=== PATIENT | male | born 1985 | race Caucasian/White ===

== ENCOUNTER 2024-02-11 11:17 | Emergency (ER) | payer OTHER ==
--- NOTE | 2024-02-11 12:05 | RAD REPORT ---
EXAM DESCRIPTION: Rodrigo Single View02/11/2024 11:59 am CLINICAL HISTORY: Chest pain COMPARISON: none FINDINGS: The lungs appear clear of acute infiltrate. The heart is normal size IMPRESSION: No acute abnormalities displayed
[2024-02-11 12:08] LABS: Absolute Basophils 0.1 K/uL (0-0.5); Absolute Eosinophils 0.1 K/uL (0-0.5); Absolute Lymphocytes (CBC) 1.7 K/uL (0.7-4.9); Absolute Monocytes 0.7 K/uL (0.1-1.3); Absolute Neutrophil 8.8 K/uL (1.8-8.0); Basophils % 0.9 % (0-1.3); Eosinophils % 0.7 % (0-4.4); Hematocrit 46.9 % (39.6-49.0); Lymphocytes % 15.1 % (15.3-44.8); MCH 30.7 pg (27.0-35.0); MCHC 34.2 g/dL (32.0-36.0); MCV 89.8 fL (80-100); MPV 8.1 fL (7.6-11.3); Monocytes % 6.5 % (3.3-12.3); Neutrophils % 76.8 % (41.7-73.7); Platelets 323 thou/uL (152-406); RBC Red Blood Cell Count 5.22 M/uL (4.33-5.43); Red Cell Distribution Width 13.6 % (12.1-15.2)
[2024-02-11 12:12] LABS: PT Prothrombin Time 12.7 SECONDS (9.5-12.5); Protime INR 1.16
[2024-02-11 12:30] LABS: ALT/SGPT 37 U/L (16-61); AST/SGOT 16 U/L (15-37); Albumin 3.7 g/dL (3.4-5.0); Albumin/Globulin Ratio 0.9 (1.1-1.8); Alkaline Phosphatase 76 U/L (45-117); BUN Blood Urea Nitrogen 17 mg/dL (7-18); Bicarbonate 24 mEq/L (21-32); Bilirubin Direct 0.1 mg/dL (0-0.2); Bilirubin Indirect, Calculated 0.5 mg/dL (0.2-0.8); Bilirubin Total 0.6 mg/dL (0.2-1.0); Glomerular Filtration Rate 71 ml/min (=/>90); Glucose Level 101 mg/dL (74-106); Magnesium 2.2 mg/dL (1.6-2.4); NT PRO-BNP 24 pg/mL (<125); Protein, Total 7.7 g/dL (6.4-8.2); Sodium Level 133 mEq/L (136-145)
[2024-02-11 12:33] LABS: Troponin High Sensitivity < 3.0 pg/mL (<58.9)
--- NOTE | 2024-02-11 12:58 | EDPHYS ---
Physician Documentation [facility] Name: Jose Roberto Maldonado Age: 39 yrs Sex: Male : 1985 Arrival Date: 02/11/2024 Time: 11:17 Bed 15 Private MD: ED Physician Bam Chou HPI: 02/10 11:58 This 39 yrs old Male presents to ER via Ambulatory with complaints of High Blood sb4 Pressure, Numbness Of Hand, Shortness Of Breath. 11:58 Patient states that he was at work this morning when all of a sudden he started sb4 experiencing shortness of breath, dizziness, diaphoresis, and tingling in both of his arms. He tried to sit in his car and cool off and then went to his PCP. PCP did an EKG at the office which was okay and sent him to the ED for further evaluation. Patient states that his symptoms have since resolved he just feels a little weak. He denies any cardiac history. Does report a history of hypertension and hypercholesterolemia but is not on any medication daily. Historical: - Allergies: 11:36 No Known Allergies; as6 - PMHx: 11:36 Hypertensive disorder; as6 - PSHx: 11:36 None; as6 - Immunization history:: Adult Immunizations up to date. - Infectious Disease History:: Denies. - Social history:: Smoking status: Reported history of juuling and/or vaping. ROS: 11:58 Constitutional: Negative for fever, chills, and weight loss, sb4 11:58 Respiratory: Positive for shortness of breath, 11:58 Neuro: Positive for dizziness, 11:58 All other systems are negative, Exam: 11:58 Constitutional: This is a well developed, well nourished patient who is awake, alert, sb4 and in no acute distress. Head/Face: Normocephalic, atraumatic. Eyes: Extra-ocular motions intact. Periorbital areas with no swelling, redness, or edema. ENT: Mucous membranes moist. Cardiovascular: Regular rate and rhythm with a normal S1 and S2. Respiratory: Lungs have equal breath sounds bilaterally, clear to auscultation and percussion. No rales, rhonchi or wheezes noted. No increased work of breathing, no retractions or nasal flaring. Abdomen/GI: Soft, non-tender, no distension. Skin: Warm, dry with normal turgor. Normal color with no rashes, no lesions, and no evidence of cellulitis. MS/ Extremity: Pulses equal, no cyanosis. Neurovascular intact. Full, normal range of motion. Neuro: Awake and alert, GCS 15, oriented to person, place, time, and situation. Motor strength 5/5 in all extremities. Sensory grossly intact. Vital Signs: 11:33 BP 144 / 105; Pulse 81; Resp 18 S; Temp 97.7(O); Pulse Ox 99% on R/A; Weight 111.13 kg as6 (R); Height 5 ft. 10 in. (R); Pain 0/10; 12:03 BP 124 / 86; Pulse 73; Resp 16 S; Pulse Ox 98% on R/A; kc6 11:33 Body Mass Index 35.15 (111.13 kg, 177.8 cm) as6 11:33 Pain Scale: Adult as6 MDM: 11:32 Patient medically screened. sb4 12:56 Data interpreted: Pulse oximetry: on room air is 98 %. Interpretation: normal. Plan: O2 sb4 by NC applied. Data reviewed: vital signs, nurses notes, lab test result(s), EKG, radiologic studies, and as a result, I will discharge patient. Consideration of Admission/Observation Escalation of care including admission/observation considered. Care significantly affected by the following chronic conditions: Hypertension. Scoring Tools HEART Score: History: ECG: Age: Risk Factors: 1 or 2 risk factors (1), Troponin: Total Score = 2. 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 02/10 11:43 Order name: Basic Metabolic Panel; Complete Time: 12:45 sb4 02/10 11:43 Order name: CBC with Diff; Complete Time: 12:15 sb4 02/10 11:43 Order name: LFT's; Complete Time: 12:45 sb4 02/10 11:43 Order name: Magnesium; Complete Time: 12:45 sb4 02/10 11:43 Order name: NT PRO-BNP; Complete Time: 12:45 sb4 02/10 11:43 Order name: PT-INR; Complete Time: 12:15 sb4 02/10 11:43 Order name: Troponin HS; Complete Time: 12:45 sb4 02/10 11:43 Order name: XRAY Chest (1 view); Complete Time: 12:08 sb4 02/10 11:43 Order name: EKG; Complete Time: 11:43 sb4 02/10 11:43 Order name: Cardiac monitoring; Complete Time: 12:02 sb4 02/10 11:43 Order name: EKG - Nurse/Tech; Complete Time: 12:02 sb4 02/10 11:43 Order name: IV Saline Lock; Complete Time: 12:02 sb4 02/10 11:43 Order name: Labs collected and sent; Complete Time: 12:02 sb4 02/10 11:43 Order name: O2 Per Protocol; Complete Time: 11:45 sb4 02/10 11:43 Order name: O2 Sat Monitoring; Complete Time: 11:45 sb4 EC:02 Rate is 72 beats/min. Rhythm is regular, Normal Sinus Rhythm. TX interval is normal at sb4 136 msec. QRS interval is normal at 94 msec. QT interval is normal at 388 msec. No Q waves. T waves are Normal. No ST changes noted. Clinical impression: Normal ECG. Interpreted by me. Reviewed by me. Administered Medications: No medications were administered Disposition Summary: 02/11/24 12:58 Discharge Ordered Notes: Location: Home sb4 Problem: new sb4 Symptoms: have improved sb4 Condition: Stable sb4 Diagnosis - Essential (primary) hypertension sb4 Followup: sb4 - With: Emergency Department - When: As needed - Reason: Trouble breathing, Worsening of condition Discharge Instructions: - Discharge Summary Sheet sb4 - Nonspecific Chest Pain, Adult, [id number] sb4 - Hypertension, Adult, [id number] sb4 Forms: - Medication Reconciliation Form sb4 - Patient Portal Instructions sb4 - Leadership Thank You Letter sb4 Signatures: Dispatcher [employer] Jose Armando Macedo RN RN as6 Zakiya Villanueva PA-C PA-C sb4
--- NOTE | 2024-02-11 12:58 | ER ---
Nurse's Notes [facility] Name: Jose Roberto Maldonado Age: 39 yrs Sex: Male : 1985 Arrival Date: 02/11/2024 Time: 11:17 Bed 15 Private MD: Diagnosis: Essential (primary) hypertension Presentation: 02/10 11:33 Chief complaint: Patient states: had an episode of shortness of breath, numbness, and as6 being diaphoretic at work. pt now c/o general weakness. Coronavirus screen: At this time, the client does not indicate any symptoms associated with coronavirus-19. Ebola Screen: No symptoms or risks identified at this time. Initial Sepsis Screen: Does the patient meet any 2 criteria? No. Patient's initial sepsis screen is negative. Does the patient have a suspected source of infection? No. Patient's initial sepsis screen is negative. Risk Assessment: Do you want to hurt yourself or someone else? Patient reports no desire to harm self or others. Onset of symptoms was February 11, 2024. 11:33 Method Of Arrival: Ambulatory as6 11:33 Acuity: JUSTIN 3 as6 Triage Assessment: 11:36 General: Appears in no apparent distress. comfortable, Behavior is calm, cooperative. as6 Pain: Denies pain. Historical: - Allergies: 11:36 No Known Allergies; as6 - PMHx: 11:36 Hypertensive disorder; as6 - PSHx: 11:36 None; as6 - Immunization history:: Adult Immunizations up to date. - Infectious Disease History:: Denies. - Social history:: Smoking status: Reported history of juuling and/or vaping. Screenin:02 [facility] ED Fall Risk Assessment (Adult) History of falling in the last 3 months, kc6 including since admission No falls in past 3 months (0 pts) Confusion or Disorientation No (0 pts) Intoxicated or Sedated No (0 pts) Impaired Gait No (0 pts) Mobility Assist Device Used No (0 pt) Altered Elimination No (0 pt) Score/Fall Risk Level 0 - 2 = Low Risk. Abuse screen: Denies threats or abuse. Denies injuries from another. Nutritional screening: No deficits noted. Tuberculosis screening: No symptoms or risk factors identified. Assessment: 13:07 Cardiovascular: Rhythm is regular. Respiratory: Airway Breath sounds are clear me1 bilaterally. 13:08 Respiratory: Respiratory effort is even, unlabored, Respiratory pattern is regular, me1 symmetrical. Vital Signs: 11:33 BP 144 / 105; Pulse 81; Resp 18 S; Temp 97.7(O); Pulse Ox 99% on R/A; Weight 111.13 kg as6 (R); Height 5 ft. 10 in. (R); Pain 0/10; 12:03 BP 124 / 86; Pulse 73; Resp 16 S; Pulse Ox 98% on R/A; kc6 11:33 Body Mass Index 35.15 (111.13 kg, 177.8 cm) as6 11:33 Pain Scale: Adult as6 ED Course: 11:22 Patient arrived in ED. mr 11:25 Zakiya Villanueva PA-C is PHCP. sb4 11:25 Bam Chou MD is Attending Physician. sb4 11:33 Arm band placed on. as6 11:35 Triage completed. as6 11:37 Brittany Mckeon, JOE is Primary Nurse. kc6 12:01 XRAY Chest (1 view) In Process Unspecified. EDMS 12:02 Inserted saline lock: 20 gauge in right antecubital area, using aseptic technique. kc6 Blood collected. 12:03 Patient has correct armband on for positive identification. Bed in low position. Call kc6 light in reach. Side rails up X 1. Client placed on continuous cardiac and pulse oximetry monitoring. NIBP monitoring applied. 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 Pillow given. 13:07 Provided Education on: POC. Verbalized understanding . me1 13:07 No provider procedures requiring assistance completed. IV discontinued, intact, me1 bleeding controlled, No redness/swelling at site. Pressure dressing applied. Administered Medications: No medications were administered Medication: 13:08 VIS not applicable for this client. me1 Outcome: 12:58 Discharge ordered by . sb4 13:07 Discharged to home ambulatory, me1 13:07 Condition: stable 13:07 Discharge instructions given to patient, Instructed on discharge instructions, follow up and referral plans. medication usage, Demonstrated understanding of instructions, follow-up care, 13:08 Patient left the ED. me1 Signatures: Dispatcher [employer] EDSD Cecy Crane, Reg Reg Jose Armando Knight RN RN asBrittany De Leon RN RN kc6 Zakiya Villanueva, SHAHANA PA-C sb4 Salina Cohen, RN RN me1
[2024-02-11 13:36] VITALS: BP 124/86; TEMP 97.7; O2SAT 98
--- NOTE | 2024-02-12 14:02 | EKG ---
Test Date: 2024-02-11 Test Time: 11:55:07 Heel Builder Machine: VY MEASUREMENT RESULTS: Intervals: Rate: 72 AK: 136 QRSD: 94 QT: 388 QTc: 424 [place]: P: 69 AK: 136 QRS: 51 T: 55 INTERPRETIVE STATEMENTS: Normal sinus rhythm Normal ECG No previous ECG available for comparison Electronically Signed On 02-12-24 13:58:52 CDT by Sam Pope
== END 2024-02-11 13:08 | disposition home or self-care (01) ==
LOC: ER 11:17
DX: I10 Essential (primary) hypertension (principal)
CPT/HCPCS: 36415; 71045; 80048; 80076; 83735; 83880; 84484; 85025; 85610; 93005; 99284